=== PATIENT | female | born 1960 | race Caucasian/White ===

== ENCOUNTER 2017-12-03 14:21 | Emergency (ER) | payer BC ==
--- OUTSIDE RECORDS SUMMARY | 2017-12-03 15:15 | XMS REPORT ---
:1960 External Reference #:[id number] Author Organization [facility] Address [address] [place] [address] Phone [phone] Care Team Providers Name Role Phone Mumatz Chris MD Care Team Information Sawmill Manager Unavailable Mumtaz Chris MD Primary Care Physician Unavailable Payers Type Date Identification Numbers Payment Provider Subscriber Commercial Policy Number: [id number] BC/BS [employer] Name: BC/BS [address] [address] PayID: [id number] [place] [address] Problems Date Description Provider Status Onset: 02/03/2011 Mixed hyperlipidemia Elysia Singer M.D. Active Onset: 02/03/2011 Benign essential hypertension Elysia Singer M.D. Active Onset: 02/03/2011 Allergic rhinitis due to animals Liz Calderon M.D. Active Onset: 11/16/2016 Overweight Mumtaz Chris M.D. Active Onset: 11/11/2015 Essential hypertension Mumtaz Chris M.D. Active Family History Date Family Member(s) Problem(s) Comments General Adopted. Father 07/28[birth year]1930. Angina. Mother age 55 from rare bladder cancer. No other history. Social History Type Date Description Comments Marital Status Patient is Living Situation no children. 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 ETOH Use Social Alcohol 1 glass of wine nightly. Smoking Patient has never smoked Daily Caffeine Consumes on average 1 cup of coffee per day Exercise Type/Frequency Exercises regularly 2 miles Current nightly with dog. Allergies, Adverse Reactions, Alerts Date Description Reaction Status Severity Comments 08/21/2009 Environmental active 08/21/2009 Seasonal active 10/19/2010 Codeine active hallucinations, hydrocodone is ok Medications Medication Date Status Form Strength Qnty SIG Indications Ordering Provider Prednisone 11/25 Active Tablets 10mg 30tab take 5 by M54.12 Melba C. s mouth daily Cleve, for 2 days, RETAIL CUSTOMER SERVICE REPRESENTATIVE then 4 for 2 days, then 3 for 2 days, then 2 for 2 days, then 1 daily until gone Tizanidine HCL 11/25 Active Capsules 2mg 30cap take one or M54.12 Melba C. s two by Cleve, mouth three RETAIL CUSTOMER SERVICE REPRESENTATIVE times daily as needed for pain Tramadol HCL 11/25 Active Tablets 50mg 20tab take 1 by M54.12 Melba C. s mouth every Cleve, 6 hours as RETAIL CUSTOMER SERVICE REPRESENTATIVE needed for severe pain. Lotrisone 11/22 Active Cream 1-0.05% 30gm use on skin Mumtaz Kerns twice a day Evelyn Chris Proair HFA 04/15 Active Aerosol 108(90Bas 1unit inhale 2 J30.81 Mumtaz Kerns e) s puffs by oscar Chris/Act mouth every M.D. 4 hours if needed Losartan 03/04 Active Tablets 50mg 90tab take 1 I10 Melba Terry s tablet by Cleve, mouth once RETAIL CUSTOMER SERVICE REPRESENTATIVE daily Simvastatin 08/21 Active Tablets 20mg 30tab take 1 E78.2 Mumtaz Kerns s tablet by Dot mouth at M.D. bedtime Fish Oil Active Oil I10 Unknown /0000 Vitamin D Active Tablets 1000Unit 1 by mouth Unknown /0000 every day otc Vitamin B12 Active Tablets ER 1000mcg 1 by mouth Unknown /0000 every day Glucosamine Active Capsules 1500Com Daily Unknown 1500 Complex Maximum Strength Co Q-10 Active Capsules 150mg 1 by mouth Unknown /0000 every day Lotrisone 03/07 Hx Cream 1-0.05% 30gm use on skin Mumtaz Kerns twice a day Lissette Chris M.D. 11/10 Vitamin D3 10/19 Hx 2000Unit 90uni 1 po qd 268.9 Liz Orosco Lissette Calhoun M.D. 03/06 Zithromax 08/19 Hx Tablets 250mg 6tabs as directed Mumtaz Bean Lissette Chris M.D. 10/19 Nasonex 04/15 Hx Suspension 50mcg/Act 1unit Instill 2 477.2 Mumtaz Kerns /2010 s Sprays Into Lissette Chris M.D. 11/06 Nostr Once Daily Multivitamins 08/21 Hx Tablets 100ta 1 po qd 401.1 Elysia Prasad /2009 Lissette Mack M.D. 11/06 Diovan 03/26 Hx Tablets 80mg 1 po qd [facility] 08/21 Of Simvastatin 03/26 Hx Tablets 20mg 1 po qd [facility] 08/21 [facility] [place] Daria 03/26 Hx Tablets 0.35mg [facility] 08/21 [facility] [place] Diovan 03/26 Hx Tablets 40mg 30tab 1 po daily 401.1 Elysia Prasad /2009 s Lissette Singer M.D. 03/04 Simvastatin 03/26 Hx Tablets 5mg 30tab 1 po daily. 272.2 Elysia Prasad /2009 s (should be Lissette Singer M.D. 08/21 continuatio n of same dose.) Coenzyme Q10 00 Hx Capsules 100mg 1 po daily. 401.1 Unknown /0000 - 03/04 Claritin-D 24 00 Hx Tablets ER 10-240mg 5tabs 1 po qd Unknown Hour /0000 24HR - 11/06 Tramadol HCL 00 Hx Tablets 50mg 1 by mouth Unknown /0000 every 6 - hours as 11/25 Immunizations CPT Code Status Date Vaccine Lot # [id number] Given 03/20/2016 Influenza Vac, Quadriv[place], [place] [id number] Given 01/06/2015 Influenza Vac, Quadriv[place], [place] [id number] Given 03/06/2012 Tdap Tetanus, W Pertussis [id number] Vital Signs Date Vital Result Comment 11/25/2017 BP Systolic 162 mmHg BP Diastolic 82 mmHg Heart Rate 72 /min Body Temperature 98.1 F Height 63 inches 5'3" Weight 204.00 lb BMI (Body Mass Index) 36.1 kg/m2 11/22/2017 BP Systolic 148 mmHg BP Diastolic 82 mmHg Heart Rate 78 /min Body Temperature 98.2 F Height 63 inches 5'3" Weight 202.00 lb BMI (Body Mass Index) 35.8 kg/m2 11/16/2016 BP Systolic 138 mmHg BP Diastolic 80 mmHg Heart Rate 72 /min Body Temperature 98.1 F Respiratory Rate 18 /min Height 63 inches 5'3" Weight 198.00 lb BMI (Body Mass Index) 35.1 kg/m2 11/11/2015 BP Systolic 140 mmHg BP Diastolic 90 mmHg Heart Rate 66 /min Body Temperature 98.0 F Respiratory Rate 20 /min Height 63 inches 5'3" Weight 195.00 lb BMI (Body Mass Index) 34.5 kg/m2 11/06/2014 BP Systolic 140 mmHg BP Diastolic 84 mmHg Heart Rate 62 /min Body Temperature 97.6 F Respiratory Rate 18 /min Height 63 inches 5'3" Weight 195.00 lb BMI (Body Mass Index) 34.5 kg/m2 03/07/2013 BP Systolic 142 mmHg BP Diastolic 90 mmHg Heart Rate 68 /min Body Temperature 98.7 F Respiratory Rate 18 /min Height 64 inches 5'4" Weight 193.00 lb BMI (Body Mass Index) 33.1 kg/m2 03/06/2012 BP Systolic 124 mmHg BP Diastolic 88 mmHg Heart Rate 72 /min Body Temperature 97.7 F Height 64 inches 5'4" Weight 193.00 lb BMI (Body Mass Index) 33.1 kg/m2 10/19/2010 BP Systolic 122 mmHg BP Diastolic 82 mmHg Heart Rate 72 /min Body Temperature 98.0 F Height 64 inches 5'4" Weight 196.00 lb BMI (Body Mass Index) 33.6 kg/m2 08/19/2010 BP Systolic 128 mmHg BP Diastolic 70 mmHg Heart Rate 72 /min Body Temperature 98.4 F Height 64 inches 5'4" Weight 195.00 lb BMI (Body Mass Index) 33.5 kg/m2 04/15/2010 BP Systolic 134 mmHg BP Diastolic 86 mmHg Heart Rate 76 /min Height 64 inches 5'4" Weight 195.00 lb BMI (Body Mass Index) 33.5 kg/m2 03/04/2010 BP Systolic 138 mmHg BP Diastolic 88 mmHg Heart Rate 68 /min Height 64 inches 5'4" Weight 195.00 lb BMI (Body Mass Index) 33.5 kg/m2 08/21/2009 BP Systolic 158 mmHg BP Diastolic 92 mmHg Heart Rate 68 /min Body Temperature 99.2 F Respiratory Rate 12 /min Weight 193.00 lb 03/26/2009 BP Systolic 162 mmHg BP Diastolic 92 mmHg Heart Rate 68 /min Height 64 inches 5'4" Weight 194.00 lb BMI (Body Mass Index) 33.3 kg/m2 Results Test Date Test Result H/L Range Note Comprehensive Metabolic Prof 11/22/2017 Sodium 140 mEq/L 134-149 Potassium 4.4 mEq/L 3.6-5.5 Chloride 105 mEq/L 94-112 Carbon Dioxide 25 mEq/L 21-32 Glucose 124 mg/dL High 70-105 BUN 17 mg/dL 6-26 Creatinine 0.8 mg/dL 0.6-1.4 BUN/Creat Ratio 21.3 CALC 8.0-36.0 Calcium 9.2 mg/dL 8.6-10.2 Total Protein 6.9 g/dL 6.4-8.3 Albumin 4.8 g/dL 3.8-5.5 Globulin 2.1 g/dL 2.0-4.8 A/G Ratio 2.3 CALC 0.6-2.3 Alk. Phosphatase 70 U/L 30-110 Alt (SGPT) 29 U/L 7-35 Ast (Sgot) 16 U/L 5-34 Total Bilirubin 1.4 mg/dL High 0.2-1.3 GFR Non- >60 ml/min/1.73m^ >=60 GFR >60 ml/min/1.73m^ >=60 Lipid Profile 11/22/2017 Cholesterol 200 mg/dL 120-200 Triglycerides 156 mg/dL 30-200 HDL Cholesterol 56 mg/dL 30-85 LDL (Calculated) 113 CALC 0-129 VLDL Cholesterol 31 mg/dL 0-50 HDL Risk Factor 3.6 CALC 0.0-4.4 Comprehensive Metabolic Prof 11/16/2016 Sodium 143 mEq/L 134-149 Potassium 5.0 mEq/L 3.6-5.5 Chloride 105 mEq/L 94-112 Carbon Dioxide 24 mEq/L 21-32 Glucose 109 mg/dL High 70-105 BUN 15 mg/dL 6-26 Creatinine 0.7 mg/dL 0.6-1.4 BUN/Creat Ratio 21.4 CALC 8.0-36.0 Calcium 9.8 mg/dL 8.6-10.2 Total Protein 7.1 g/dL 6.4-8.3 Albumin 4.8 g/dL 3.8-5.5 Globulin 2.3 g/dL 2.0-4.8 A/G Ratio 2.1 CALC 0.6-2.3 Alk. Phosphatase 69 U/L 30-110 Alt (SGPT) 29 U/L 7-35 Ast (Sgot) 19 U/L 5-34 Total Bilirubin 1.0 mg/dL 0.2-1.3 GFR Non- >60 ml/min/1.73m^ >=60 GFR >60 ml/min/1.73m^ >=60 Lipid Profile 11/16/2016 Cholesterol 179 mg/dL 120-200 Triglycerides 201 mg/dL High 30-200 HDL Cholesterol 47 mg/dL 30-85 LDL (Calculated) 92 CALC 0-129 VLDL Cholesterol 40 mg/dL 0-50 HDL Risk Factor 3.8 CALC 0.0-4.4 Complete Blood Count 11/16/2016 WBC 8.0 x10^3/UL 3.6-9.6 RBC 5.26 x10^6/UL 3.90-5.70 HGB 15.3 g/dL 12.1-17.2 HCT 46 % 36-50 MCV 87.0 fL 82.2-97.4 MCH 29.1 pg 27.6-33.3 MCHC 33.7 g/dL 33.0-35.5 RDW 13.6 % 11.6-13.7 PLT 289 x10^3/UL 150-400 MPV 7.8 fL 7.4-10.4 Gran # 4.0 x10^3/UL 1.5-7.2 Lymph# 3.5 x10^3/UL 0.7-4.9 [place]# 0.5 x10^3/UL 0.1-0.9 Gran % 49.0 % 42.2-75.2 Lymph % 44.6 % 20.5-51.1 [place]% 6.4 % 1.7-9.3 Comprehensive Metabolic Prof 11/19/2015 Sodium 139 mEq/L 134-149 Potassium 4.5 mEq/L 3.6-5.5 Chloride 104 mEq/L 94-112 Carbon Dioxide 25 mEq/L 21-32 Glucose 111 mg/dL High 70-105 1 BUN 17 mg/dL 6-26 Creatinine 0.8 mg/dL 0.6-1.4 BUN/Creat Ratio 21.3 CALC 8.0-36.0 Calcium 9.9 mg/dL 8.6-10.2 Total Protein 6.7 g/dL 6.4-8.3 Albumin 4.5 g/dL 3.8-5.5 Globulin 2.2 g/dL 2.0-4.8 A/G Ratio 2.0 CALC 0.6-2.3 Alk. Phosphatase 62 U/L 30-110 Alt (SGPT) 31 U/L 7-35 Ast (Sgot) 19 U/L 5-34 Total Bilirubin 1.1 mg/dL 0.2-1.3 GFR Non- >60 ml/min/1.73m^ >=60 GFR >60 ml/min/1.73m^ >=60 Lipid Profile 11/19/2015 Cholesterol 180 mg/dL 120-200 Triglycerides 150 mg/dL 30-200 HDL Cholesterol 49 mg/dL 30-85 LDL (Calculated) 101 CALC 0-129 VLDL Cholesterol 30 mg/dL 0-50 HDL Risk Factor 3.7 CALC 0.0-4.4 Complete Blood Count 11/19/2015 WBC 6.7 x10^3/UL 3.6-9.6 RBC 4.80 x10^6/UL 3.90-5.70 HGB 14.3 g/dL 12.1-17.2 HCT 43 % 36-50 MCV 89.0 fL 82.2-97.4 MCH 29.9 pg 27.6-33.3 MCHC 33.7 g/dL 33.0-35.5 RDW 14.3 % High 11.6-13.7 PLT 225 x10^3/UL 150-400 MPV 8.2 fL 7.4-10.4 Gran # 3.6 x10^3/UL 1.5-7.2 Lymph# 2.8 x10^3/UL 0.7-4.9 [place]# 0.3 x10^3/UL 0.1-0.9 Gran % 52.1 % 42.2-75.2 Lymph % 42.8 % 20.5-51.1 [place]% 5.1 % 1.7-9.3 Comprehensive Metabolic Prof 11/06/2014 Sodium 138 mEq/L 134-149 Potassium 4.1 mEq/L 3.6-5.5 Chloride 102 mEq/L 94-112 Carbon Dioxide 26 mEq/L 21-32 Glucose 108 mg/dL High 70-105 2 BUN 20 mg/dL 6-26 Creatinine 0.8 mg/dL 0.6-1.4 BUN/Creat Ratio 25.0 CALC 8.0-36.0 Calcium 10.4 mg/dL High 8.6-10.2 3 Total Protein 7.4 g/dL 6.4-8.3 Albumin 4.7 g/dL 3.8-5.5 Globulin 2.7 g/dL 2.0-4.8 A/G Ratio 1.7 CALC 0.6-2.3 Alk. Phosphatase 55 U/L 30-110 Alt (SGPT) 26 U/L 7-35 Ast (Sgot) 18 U/L 5-34 Total Bilirubin 1.2 mg/dL 0.2-1.3 GFR Non- >60 ml/min/1.73m^ >=60 GFR >60 ml/min/1.73m^ >=60 Lipid Profile 11/06/2014 Cholesterol 231 mg/dL High 120-200 Triglycerides 276 mg/dL High 30-200 HDL Cholesterol 56 mg/dL 30-85 LDL (Calculated) 120 CALC 0-129 VLDL Cholesterol 55 mg/dL High 0-50 HDL Risk Factor 4.1 CALC 0.0-4.4 Complete Blood Count 11/06/2014 WBC 7.6 x10^3/UL 3.6-9.6 RBC 4.63 x10^6/UL 3.90-5.70 HGB 14.2 g/dL 12.1-17.2 HCT 41 % 36-50 MCV 89.0 fL 82.2-97.4 MCH 30.6 pg 27.6-33.3 MCHC 34.3 g/dL 33.0-35.5 RDW 14.2 % High 11.6-13.7 PLT 311 x10^3/UL 150-400 MPV 7.5 fL 7.4-10.4 Gran # 3.6 x10^3/UL 1.5-7.2 Lymph# 3.5 x10^3/UL 0.7-4.9 [place]# 0.5 x10^3/UL 0.1-0.9 Gran % 45.6 % 42.2-75.2 Lymph % 46.6 % 20.5-51.1 [place]% 7.8 % 1.7-9.3 Laboratory test finding 11/06/2014 LDL, Direct 131 mg/dL High 0-130 Comprehensive Metabolic Prof 03/08/2013 Albumin 5.5 g/dL 3.8-5.5 Alk. Phos. 72 U/L 30-110 Alt (SGPT) 47 U/L High 7-35 4 Ast (Sgot) 32 U/L 5-34 BUN 15 mg/dL 6-26 Calcium 10.1 mg/dL 8.6-10.2 Chloride 104 mEq/L 94-112 Creatinine 1.1 mg/dL 0.6-1.4 Carbon Dioxide 25 mEq/L 21-32 Glucose 118 mg/dL High 70-105 5 Sodium 143 mEq/L 134-149 Total Bilirubin 2.0 mg/dL High 0.2-1.3 Total Protein 8.1 g/dL 6.3-8.1 Potassium 4.6 mEq/L 3.6-5.5 Globulin 2.6 g/dL 2.0-4.8 A/G Ratio 2.1 Calc 0.6-2.3 BUN/Creat Ratio 14.3 Calc 8.0-36.0 Lipid Profile 03/08/2013 Cholesterol 225 mg/dL High 120-200 HDL 60 mg/dL 30-85 Triglycerides 205 mg/dL High 30-200 HDL Risk Factor 3.8 CALC 0.0-4.4 LDL (Calculated) 124 CALC 0-129 VLDL (Calculated) 41 mg/dL 0-50 CBC Electronic (a) 03/08/2013 WBC 6.7 3.6-9.6 RBC 5.25 3.90-5.70 Hemoglobin (Fma/CMC/CTX) 15.3 g/dL 12.1 - 17.2 Hematocrit (Fma/CMC/CTX) 46.7 % 36.1 - 50.3 Platelets 286 10^3/ul 150-400 Lymph% 40.8 20.5-51.1 Mixed% 4.0 Neutrophils % 55.2 Mean Corpuscular Vol 89 82.2-97.4 Mean Corpuscular Hemoglobin 29.2 27.6-33.3 Mean Corpuscular Hemo Concen 32.8 32.0-36.0 RDW 11.8 11.6-13.7 Mean Platelet Volume 7.2 6.5-11.0 Lipid Profile 03/06/2012 Cholesterol 219 mg/dL High 120-200 HDL 45 mg/dL 30-85 Triglycerides 163 mg/dL 30-200 HDL Risk Factor 4.9 CALC High 0.0-4.4 LDL (Calculated) 142 CALC High 0-129 VLDL (Calculated) 33 mg/dL 0-50 Comprehensive Metabolic Prof 03/06/2012 Albumin 5.4 g/dL 3.8-5.5 Alk. Phos. 61 U/L 30-110 Alt (SGPT) 46 U/L High 7-35 6 Ast (Sgot) 26 U/L 5-34 BUN 18 mg/dL 6-26 Calcium 10.2 mg/dL 8.6-10.2 Chloride 103 mEq/L 94-112 Creatinine 0.8 mg/dL 0.6-1.4 Carbon Dioxide 24 mEq/L 21-32 Glucose 106 mg/dL High 70-105 7 Sodium 138 mEq/L 134-149 Total Bilirubin 1.5 mg/dL High 0.2-1.3 8 Total Protein 7.9 g/dL 6.3-8.1 Potassium 4.4 mEq/L 3.6-5.5 Globulin 2.5 g/dL 2.0-4.8 A/G Ratio 2.2 Calc 0.6-2.2 BUN/Creat Ratio 21.9 Calc 8.0-36.0 Comprehensive Metabolic Prof 01/21/2011 Albumin 4.9 g/dL 3.8-5.5 Alk. Phos. 59 U/L 30-110 Alt (SGPT) 29 U/L 7-35 Ast (Sgot) 18 U/L 5-34 BUN 17 mg/dL 6-26 Calcium 9.7 mg/dL 8.6-10.2 Chloride 106 mEq/L 94-112 Creatinine 0.8 mg/dL 0.6-1.4 Carbon Dioxide 23 mEq/L 21-32 Glucose 115 mg/dL High 70-105 9 Sodium 136 mEq/L 134-149 Total Bilirubin 1.0 mg/dL 0.2-1.3 Total Protein 7.2 g/dL 6.3-8.1 Potassium 4.9 mEq/L 3.6-5.5 Globulin 2.3 g/dL 2.0-4.8 A/G Ratio 2.2 Calc 0.6-2.2 BUN/Creat Ratio 21.1 Calc 8.0-36.0 Lipid Profile 01/21/2011 Cholesterol 177 mg/dL 120-200 HDL 42 mg/dL 30-85 Triglycerides 113 mg/dL 30-200 HDL Risk Factor 4.2 CALC High 0.0-4.0 LDL (Calculated) 112 CALC 0-129 VLDL (Calculated) 23 mg/dL 0-50 Laboratory test finding 01/21/2011 Hemoglobin A1c 5.4 % 4.1-5.7 (Fma/CMC,CX) Surgical Pathology 11/30/2010 Surgical Pathology 10 -- <SEE NOTE> Comprehensive Metabolic 10/19/2010 Albumin 4.7 g/dL 3.8-5.5 Prof Alk. Phos. 61 U/L 30-110 Alt (SGPT) 30 U/L 7-35 Ast (Sgot) 17 U/L 5-34 BUN 18 mg/dL 6-26 Calcium 9.7 mg/dL 8.6-10.2 Chloride 98 mEq/L 94-112 Creatinine 0.8 mg/dL 0.6-1.4 Carbon Dioxide 25 mEq/L 21-32 Glucose 122 mg/dL High 70-105 11 Sodium 140 mEq/L 134-149 Total Bilirubin 1.2 mg/dL 0.2-1.3 Total Protein 6.8 g/dL 6.3-8.1 Potassium 4.5 mEq/L 3.6-5.5 Globulin 2.1 g/dL 2.0-4.8 A/G Ratio 2.2 Calc 0.6-2.2 BUN/Creat Ratio 21.2 Calc 8.0-36.0 Lipid Profile 10/19/2010 Cholesterol 192 mg/dL 120-200 HDL 45 mg/dL 30-85 Triglycerides 208 mg/dL High 30-200 HDL Risk Factor 4.3 CALC High 0.0-4.0 LDL (Calculated) 105 CALC 0-129 VLDL (Calculated) 42 mg/dL 0-50 Laboratory test finding 10/19/2010 Vitamin D, 25 Oh 33.7 ng/mL 32.0- 100.0 12 Laboratory test finding 02/28/2010 Hemoglobin A1c 5.5 % 4.1-5.7 (Fma/CMC,CX) Laboratory test finding 02/28/2010 TSH 3.80 mIU/L 0.50-6.00 Lipid Profile 02/28/2010 Cholesterol 161 mg/dL 120-200 HDL 41 mg/dL 30-85 Triglycerides 135 mg/dL 30-200 HDL Risk Factor 4.0 CALC Low 4.2-7.0 LDL (Calculated) 93 CALC 0-129 VLDL (Calculated) 27 mg/dL 0-50 Comprehensive Metabolic Prof 02/28/2010 Albumin 4.5 g/dL 3.8-5.5 Alk. Phos. 44 U/L 30-110 Alt (SGPT) 26 U/L 7-35 Ast (Sgot) 19 U/L 5-34 BUN 15 mg/dL 6-26 Calcium 9.2 mg/dL 8.6-10.2 Chloride 104 mEq/L 94-112 Creatinine 0.9 mg/dL 0.6-1.4 Carbon Dioxide 22 mEq/L 21-32 Glucose 104 mg/dL 70-105 Sodium 137 mEq/L 134-149 Total Bilirubin 0.9 mg/dL 0.2-1.3 Total Protein 6.6 g/dL 6.3-8.1 Potassium 4.5 mEq/L 3.6-5.5 Globulin 2.1 g/dL 2.0-4.8 A/G Ratio 2.1 Calc 0.6-2.2 BUN/Creat Ratio 16.5 Calc 8.0-36.0 Comprehensive Metabolic Prof 08/08/2009 Albumin 4.5 g/dL 3.8-5.5 Alk. Phos. 68 U/L 30-110 Alt (SGPT) 21 U/L 7-35 Ast (Sgot) 17 U/L 5-34 BUN 17 mg/dL 6-26 Calcium 9.7 mg/dL 8.6-10.2 Chloride 97 mEq/L 94-112 Creatinine 0.9 mg/dL 0.6-1.4 Carbon Dioxide 24 mEq/L 21-32 Glucose 111 mg/dL High 70-105 13 Sodium 145 mEq/L 134-149 Total Bilirubin 1.3 mg/dL 0.2-1.3 Total Protein 6.7 g/dL 6.3-8.1 Potassium 4.6 mEq/L 3.6-5.5 Globulin 2.1 g/dL 2.0-4.8 A/G Ratio 2.1 Calc 0.6-2.2 BUN/Creat Ratio 20.2 Calc 8.0-36.0 Laboratory test finding 08/08/2009 TSH 3.67 mIU/L 0.50-6.00 Creatine Kinase 60 U/L 26-140 Lipid Profile 08/08/2009 Cholesterol 192 mg/dL 120-200 HDL 50 mg/dL 30-85 Triglycerides 144 mg/dL 30-200 HDL Risk Factor 3.8 CALC Low 4.2-7.0 LDL (Calculated) 113 CALC 0-129 VLDL (Calculated) 29 mg/dL 0-50 CBC With Electronic Diff 07/08/2009 White Blood Count 7.4 CUMM 4.8-10.8 14 Red Cell Count 4.87 CUMM 4.2-5.4 14 Hemoglobin 13.9 g/dL 12.0-16.0 14 Hematocrit 41 % 35-47 14 Mean Corpuscular Volume 84 um3 79-97 14 Mean Corpuscular Hemoglob 28 pg 27-31 14 Mean Corpuscular HGB Cone 34 g/dL 32-36 14 Redcell Distribution WDTH 14 % 10.5-15 14 Platelet Count 217 CUMM 150-450 14 Mean Platelet Volume 9.0 um3 7.4-10.4 14 Gran % 56.5 % 38-83 14 Lymph % 32.5 % 20-45 14 Mononuclear % 6.4 % 1-9 14 Eosinophil % 3.8 % 0-6 14 Basophil % 0.8 % 0-2 14 Abs Lymphs 2.4 1.0-4.8 14 Abs Mononuclear 0.5 0-0.8 14 Absolute Neutrophil Count 4.1 1.5-7.7 14 Abs Eosinophils 0.3 0-0.6 14 Abs Basophils 0.1 0-0.2 14 Type And Screen 07/08/2009 Patient Blood Type O POSITIVE 14 Antibody Screen NEGATIVE 14 Specimen Discard Date 07/22/09 14, 15 1 consistent w/ previous results 2 RESULTS VERIFIED BY REPEAT ANALYSIS 3 RESULTS VERIFIED BY REPEAT ANALYSIS 4 result sandra'd 5 resutl sandra'd 6 result sandra'd 7 result sandra'd 8 result sandra'd 9 RESULT SANDRA'D 10 ---- RUN DATE: 12/02/10 [facility] NMI LIVE PAGE 1 RUN TIME: 1323 Specimen Inquiry RUN USER: INTERFACE -- Name: BEBE PHILLIPS [facility]#: [id number] Status: REG REF Re11/30/10 Age/Sex: 50/F Unit#: [id number] Location: [address] [place] [address].O.B. : 58 -- Specimen: [id number] [facility] Spec Date: 11/30/[address]: Femi garcia MD Spec Type: SURGICAL P Received: 12/01/10 Copies to: Liz Riggs SPECIMEN BIOPSY SIGMOID NODULE HISTORY POST-OP DIAGNOSIS: Colonoscopy to cecum. Diverticulosis. Nodule. CLINICAL INFORMATION: First exam. Screening. GROSS DESCRIPTION The specimen is received in formalin labelled Bebe Phillips, Biopsy Sigmoid Nodule, and consists of two fragments of yellow tissue measuring in aggregate 0.4 x 0.4 x 0.2 cm. Submitted entirely, one cassette. DIAGNOSIS Sigmoid nodule, biopsy: A. Tubular adenoma. B. No high grade dysplasia or malignancy. Signed Electronically by: YIFAN DIAMOND 12/02/10 1323 -- -- DEPARTMENT OF PATHOLOGY, [address] [place] [address] [facility] Permit #[id number] Chandan Haines M.D. Director Yifan Diamond M.D. Ball Assembler diane -- 11 RESULT SANDRA'D 12 Recent studies consider the lower limit of 32.0 ng/mL to be a threshold for optimal health. Kulwinder BW. J Nutr. 2005 Apr;135(2):317-22. 13 RESULT SANDRA'Oenil 14 07/18/09 15 PREADMISSION TESTING SAMPLES FOR BLOOD BANK WILL BE HELD FOR 14 DAYS FROM THE DATE OF COLLECTION *IF* THE FOLLOWING CRITERIA ARE MET: 1) THE PATIENT HAS *NOT* BEEN IN THE LAST 3 MONTHS. 2) THE PATIENT HAS *NOT* BEEN TRANSFUSED IN THE LAST 3 MONTHS. PREADMISSION TESTING SAMPLES WILL *NOT* BE HELD FOR 14 DAYS FROM PATIENTS WHO IN THE LAST 3 MONTHS: 1) HAVE BEEN 2) HAVE BEEN TRANSFUSED THESE PATIENTS *MUST* BE COLLECTED WITHIN 3 DAYS OF THE SURGERY DATE. Procedures Date CPT Code Description Status Comment 06/20/2015 Mammogram Completed 12/11/2012 Mammogram Completed 11/30/2010 Colonoscopy Completed 09/18/2010 Mammogram Completed 201604/25/2009 Mammogram Completed Encounters Type Date Location Provider CPT E/M Dx Office Visit 11/25/2017 3:15p [facility] Melba Harrison Poon, SOFI 31463 M54.12 Z12.31 Z12.11 Office Visit 11/22/2017 9:40a [facility] Office Mumtaz Chris M.D. 03999 I10 E78.2 Office Visit 11/16/2016 10:10a [facility] Mumtaz Chris M.D. 64098 I10 E78.2 E66.3 Office Visit 11/11/2015 3:10p [facility] Office Mumtaz Chris M.D. 20794 I10 E78.2 Office Visit 11/06/2014 8:10a [facility] Mumtaz Chris M.D. 25722 401.1 272.2 272.1 Office Visit 03/07/2013 6:00p [facility] Mumtaz Chris M.D. 47265 272.2 401.1 Office Visit 03/06/2012 9:20a [facility] Mumtaz Chris M.D. 74592 272.2 401.1 V06.1 v06.5 Office Visit 10/19/2010 8:00a [facility] Office Liz Calderon M.D. 62582 401.1 272.2 477.2 V65.49 268.9 Office Visit 08/19/2010 7:40p [facility] Mumtaz Chris M.D. 75950 466.0 Office Visit 04/15/2010 6:40p [facility] Liz Calderon M.D. 46897 477.2 401.1 Office Visit 03/04/2010 6:00p [facility] Lzi Calderon M.D. 11131 401.1 272.2 277.7 Office Visit 08/21/2009 11:00a [facility] Elysia Singer M.D. 15929 401.1 272.2 277.7 Office Visit 03/26/2009 12:00p [facility] Elysia Singer M.D. 49587 401.1 272.2 Plan of Care 11/25/2017 - Melba Poon, NPM54.12 Radiculopathy, cervical regionNew Medication:Prednisone 10 mgTizanidine HCL 2 mgTramadol HCL 50 mgComments:Take these medications and observe for the next several days.If you develop weakness or rapidly worsening symptoms go to the ED.Come back in one week if you do not see some improvement.Z12.31 Encntr screen mammogram for malignant neoplasm of pojixlP60.11 Encounter for screening for malignant neoplasm of colon
--- NOTE | 2017-12-03 15:51 | RAD ---
INDICATION: Neck pain. COMPARISON: There are no prior studies available for comparison. TECHNIQUE: Contiguous axial sections were obtained from the skull base through the T2 vertebra. Images were reconstructed in the sagittal and coronal planes. FINDINGS: VERTEBRA: There is straightening of the cervical spine with loss of the normal cervical lordosis. No prevertebral soft tissue swelling or fracture is seen. C2-C3: No significant disc bulge or herniation is noted. No spinal canal or neural foraminal narrowing is seen. C3-C4: There is mild posterior uncinate process spurring. No significant spinal canal or neural foraminal narrowing is seen. C4-C5: There is mild posterior uncinate process spurring and hypertrophic change which is most prominent within the right facet joint. No significant spinal canal narrowing is present. There is moderate neural foraminal narrowing on the right side. C5-C6: There is mild to moderate posterior uncinate process spurring and hypertrophic changes within the facet joints. There appears be mild spinal canal narrowing. There is moderate neural foraminal narrowing on the right side and mild neural foraminal narrowing on the left side. C6-C7: No significant disc bulge or herniation is noted. No spinal canal or neural foraminal narrowing is seen. LUNG APICES: The lung apices appear clear. IMPRESSION: 1. STRAIGHTENING OF THE CERVICAL SPINE, POSSIBLY RELATED TO MUSCLE SPASM. 2. MILD TO MODERATE CERVICAL SPONDYLOSIS. IF THE PATIENT'S SYMPTOMS PERSIST RECOMMEND FOLLOW-UP MR IMAGING.
[2017-12-03] MEDS ORDERED: LORazepam INJ* 2 MG/ML 1 ML VIAL IM ONE (16:38)
[2017-12-03] MEDS ORDERED: Morphine INJ** 4 MG/ML 1 ML CARPUJECT IV ONE (16:38)
[2017-12-03] MEDS ORDERED: Morphine INJ* 2 MG/ML 1 ML SYRINGE (TWO MG - NEW SYRINGE VERSION) ONE (16:50)
[2017-12-03] MEDS ORDERED: Morphine INJ* 2 MG/ML 1 ML SYRINGE (TWO MG - NEW SYRINGE VERSION) IV ONE (16:57)
[2017-12-03 17:19] VITALS: BP 182/96
--- NOTE | 2017-12-03 17:36 | ED ---
Neck Pain - HPI Summary HPI Summary: Patient is a 57 y/o F w/ c/o neck pain and muscular spasms onsetting two weeks ago and has gradually worsened. She has been seen by PCP and placed on steroids , muscle relaxers and pain killers. Patient denies relief in Sx from these treatments. She denies recent trauma, fevers, numbness, weakness. 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 On triage, pain is rated 10/10 and it is noted that movement aggravates pain, with nothing alleviating. Home medications and allergies reviewed. - History of Current Complaint Chief Complaint: EDNeckComplaint Stated Complaint: NECK PAIN Time Seen by Provider: 12/03/17 16:21 Hx Obtained From: Patient Onset/Duration Of Injury/Symptoms: Weeks - 2 weeks ago Mechanism Of Injury: No Known Trauma Timing: Constant, Lasting Weeks - 2 weeks Onset/Duration: Started weeks ago - 2 weeks, Still Present Severity Currently: Severe - 10/10 Pain Intensity: 10 Pain Scale Used: 0-10 Numeric - 10/10 Location: Discrete At: - neck Aggravating Factors: Movement Alleviating Factors: Nothing Associated Signs & Symptoms: Negative: Fever, Weakness - Allergies/Home Medications Allergies/Adverse Reactions: Allergies Allergy/AdvReac Type Severity Reaction Status Date / Time codeine Allergy Severe See Comment Verified 12/03/17 14:33 acetic acid [From VoSol] Allergy Unknown Unknown Verified 12/03/17 14:33 Reaction Details Home Medications: Home Medications NK [No Home Medications Reported] 12/03/17 [History Confirmed 12/03/17] PMH/Surg Hx/FS Hx/Imm Hx Endocrine/Hematology History: Denies: Hx Diabetes Cardiovascular History: Reports: Hx Hypertension - TAKES MEDICATION Denies: Hx Pacemaker/ICD Sensory History: Denies: Hx Hearing Aid Psychiatric History: Denies: Hx Panic Disorder - Surgical History Surgery Procedure, Year, and Place: Partial Hysterectomy 2010 Infectious Disease History: No Infectious Disease History: Reports: Traveled Outside the [place] in Last 30 Days - [place] - Family History Known Family History: Negative: Blood Disorder - Social History Alcohol Use: Rare Substance Use Type: Reports: None Smoking Status (MU): Never Smoked Tobacco Review of Systems Negative: Fever Positive: Other - POSITIVE: neck pain NEGATIVE: recent trauma Negative: Weakness, Numbness All Other Systems Reviewed And Are Negative: Yes Physical Exam - Summary Physical Exam Summary: Appearance: Well appearing, no pain distress Skin: warm, dry, reflects adequate perfusion Head/face: normal Eyes: EOMI, AMINTA ENT: normal Neck: supple, non-tender Respiratory: CTA, breath sounds present Cardiovascular: RRR, pulses symmetrical Abdomen: non-tender, soft Bowel Sounds: present Musculoskeletal: strength/ROM intact, diffuse tenderness in the muscular area of the neck Neuro: normal, sensory motor intact, A&Ox3 Triage Information Reviewed: Yes Vital Signs On Initial Exam: Initial Vitals Temp Pulse Resp BP Pulse Ox 98.0 F 58 16 141/74 99 12/03/17 14:26 12/03/17 14:26 12/03/17 14:26 12/03/17 14:26 12/03/17 14:26 Vital Signs Reviewed: Yes Procedures - Procedure Summary Procedure Summary: Trigger point injection: The tender musculature in the cervical spine bilaterally was cleaned with alcohol and injected with divided aliquots of a total of 15 cc of 0.5% bupivacaine with epinephrine and 5 cc of 1% lidocaine. This was massaged through the tissues. Pain relief was modest. She tolerated this well without complication. Diagnostics - Vital Signs Vital Signs Temp Pulse Resp BP Pulse Ox 12/03/17 17:18 98.1 F 62 16 182/96 99 12/03/17 17:01 16 12/03/17 17:00 16 12/03/17 14:26 98.0 F 58 16 141/74 99 - Laboratory Lab Statement: Any lab studies that have been ordered have been reviewed, and results considered in the medical decision making process. - CT cervical spine CT CT Interpretation: Positive (See Comments) CT Interpretation Completed By: Radiologist - IMPRESSION: 1. STRAIGHTENING OF THE CERVICAL SPINE, POSSIBLY RELATED TO MUSCLE SPASM. 2. MILD TO MODERATE CERVICAL SPONDYLOSIS. IF THE PATIENT'S SYMPTOMS PERSIST RECOMMEND FOLLOW-UP MR IMAGING. THIS REPORT WAS REVIEWED BY ED PHYSICIAN. Re-Evaluation - Re-Evaluation First Eval Re-Evaluation Time: 16:32 Comment: Patient was given IM injections Second Eval Re-Evaluation Time: 17:19 Change: Improved Comment: Patient reports relief from pain; she will be discharged to home and was given instructions; she is agreeable with this plan. Neck Course/Dx - Course Course Of Treatment: CT scan indicating muscular cause of cervical straightening. No bony injury. Trigger point injections performed with some improvement. Also given morphine, Ativan for muscle relaxation and pain control. Patient will follow-up with chiropractic as well as her family physician. - Diagnoses Differential Dx/HQI/PQRI: Positive: Other - Sprain, strain, locked facet, degenerative arthritis Provider Diagnoses: Cervical strain Discharge - Sign-Out/Discharge Documenting (check all that apply): Patient Departure - discharge - Discharge Plan Condition: Improved Disposition: HOME Patient Education Materials: Cervical Strain (ED) Referrals: Bao Manuel MD [Medical Doctor] - Mumtaz Chris MD [Primary Care Provider] - Additional Instructions: Recommended is critical care paramedic, medical massage. Ice, range of motion exercises and continuation of her current muscle relaxers and pain medication. Return with numbness, weakness, new symptoms or other concerns as discussed. - Billing Disposition and Condition Condition: IMPROVED Disposition: Home - Attestation Statements Document Initiated by Scribe: Yes Documenting Scribe: Durga Arroyo Provider For Whom Scribe is Documenting (Include Credential): Naun Trejo MD Scribe Attestation: Durga Liz, scribed for Naun Trejo MD on 12/03/17 at 1852. Scribe Documentation Reviewed: Yes Provider Attestation: The documentation as recorded by the Durga fitzgerald accurately reflects the service I personally performed and the decisions made by , Naun Trejo MD
== END 2017-12-03 17:18 | disposition home or self-care (01) ==
LOC: ED 14:21
CPT/HCPCS: 72125; J2060; J2270

== ENCOUNTER → 2017-12-08 05:26 | Emergency (ER) | payer BC ==
[~2017-12-08 05:26] MED LIST: Gadoteridol* (CONTRAST) 279.3 MG/ML 10 ML IV ONE; HYDROmorphone INJ* 2 MG/ML CARPUJECT SYRINGE IV SLOW PU ONE; HYDROmorphone INJ1* 1 MG/ML SYRINGE ONE; Ketorolac INJ* 30 MG/ML 1 ML VIAL IV PUSH ONE; LORazepam INJ* 2 MG/ML 1 ML VIAL IV PUSH ONE; Labetalol IV* 5 MG/ML 20 ML VIAL ONE; NS 0.9% 1000 ML* 1,000 ML IV ONE; Ondansetron INJ* 2 MG/ML VIAL IV ONE; Piperacillin/Tazobac ADVAN(*) 3.375 GM in NS 0.9% 100 ML* 100 ML IVPB ONE; Vancomycin(*) 1,500 MG in NS 0.9% 250 ML* 250 ML IVPB ONE
--- NOTE | 2017-12-08 05:44 | ED ---
GI/ HPI - HPI Summary HPI Summary: Pt. is a 57 y.o female who presents to the ER for severe right sided neck pain and arm weakness. Pt. states she started with neck pain roughly two weeks ago that has progressively gotten worse. Pt. denies any initial falls or injuries. Pt. was seen at [facility] about 5 days ago for left sided neck pain. She had a CT scan at that time which was fairly unremarkable. She also had left sided trapezius muscle trigger point injection. Pt. states she has had a mild URI over the last few days with sore throat and chills. Pt. states she is now unable to lift her arms. She denies decreased sensation in arms or legs. Pt. also notes decreased PO intake, hematuria, constipation. Symptoms are severe in severity. Movement makes symptoms worse. Nothing makes symptoms better. Denies significant past medical history. - History of Current Complaint Chief Complaint: EDGeneral Time Seen by Provider: 12/08/17 05:36 Stated Complaint: BLOOD IN URINE Hx Obtained From: Patient Pain Intensity: 10 - Allergy/Home Medications Allergies/Adverse Reactions: Allergies Allergy/AdvReac Type Severity Reaction Status Date / Time codeine Allergy Severe See Comment Verified 12/08/17 05:35 acetic acid [From VoSol] Allergy Unknown Unknown Verified 12/08/17 05:35 Reaction Details Home Medications: Home Medications Losartan TAB* [Cozaar TAB*] 50 mg PO DAILY 12/08/17 [History Confirmed 12/08/17] Simvastatin 20 mg PO DAILY 12/08/17 [History Confirmed 12/08/17] PMH/Surg Hx/FS Hx/Imm Hx Previously Healthy: Yes Endocrine/Hematology History: Denies: Hx Diabetes Cardiovascular History: Reports: Hx Hypertension - TAKES MEDICATION Denies: Hx Pacemaker/ICD Sensory History: Denies: Hx Hearing Aid Psychiatric History: Denies: Hx Panic Disorder - Surgical History Surgery Procedure, Year, and Place: Partial Hysterectomy 2010 Infectious Disease History: No Infectious Disease History: Denies: Traveled Outside the [place] in Last 30 Days - Family History Known Family History: Negative: Blood Disorder - Social History Occupation: Employed Full-time Lives: With Family Alcohol Use: Rare Substance Use Type: Reports: None Smoking Status (MU): Never Smoked Tobacco Review of Systems Positive: Chills Eyes: Negative ENT: Negative Cardiovascular: Negative Negative: Palpitations, Chest Pain Respiratory: Negative Negative: Shortness Of Breath, Cough Gastrointestinal: Negative Negative: Abdominal Pain, Vomiting, Diarrhea, Nausea Positive: hematuria. Negative: flank pain Positive: Other - Left sided neck pain Skin: Negative Positive: Headache, Weakness. Negative: Paresthesia, Numbness All Other Systems Reviewed And Are Negative: Yes Physical Exam Triage Information Reviewed: Yes Vital Signs On Initial Exam: Initial Vitals Temp Pulse Resp BP Pulse Ox 99.8 F 92 18 202/78 97 12/08/17 05:32 12/08/17 05:32 12/08/17 05:32 12/08/17 05:32 12/08/17 05:32 Vital Signs Reviewed: Yes Appearance: Positive: Pain Distress - Pt. sitting up in bed, appears in pain but nontoxic. present. Skin: Positive: Warm, Dry Head/Face: Positive: Normal Head/Face Inspection Eyes: Positive: Normal, EOMI Respiratory/Lung Sounds: Positive: Clear to Auscultation, Breath Sounds Present Cardiovascular: Positive: Normal, RRR Musculoskeletal: Positive: Other - Muscle strength in the right upper extremity. 1/5 strength on the right UE. Diffusely diminished DTR to UEs. Sensation intake to bilateral UEs and LEs. 5/5 strength in bilateral lower extremities with flexion and dorsiflexion. 2/4 patellar deep tendon reflexes. Neurological: Positive: Normal, Alert, Oriented to Person Place, Time, CN Intact II-III, Unable to Assess Gait, Facial Symmetry, Speech Normal. Negative : Disoriented, Slurred Speech Psychiatric: Positive: Affect/Mood Appropriate - Kay Coma Scale Best Eye Response: 4 - Spontaneous Best Motor Response: 6 - Obeys Commands Best Verbal Response: 5 - Oriented Coma Scale Total: 15 Diagnostics - Vital Signs Vital Signs Temp Pulse Resp BP Pulse Ox 12/08/17 05:32 99.8 F 92 18 202/78 97 - Laboratory Result Diagrams: 12/08/17 05:55 12/08/17 05:55 Lab Statement: Any lab studies that have been ordered have been reviewed, and results considered in the medical decision making process. GIGU Course/Dx - Course Course Of Treatment: Pt. presenting with severe lateral neck pain and arm weakness. Pt. examined immediately by Dr. Trejo as well. Hypertensive at 202/ 78, HR 92bpm, resp 18, pulse ox 97%, temp. 99.8F. IV placed and pt. placed on monitor. WBC elevated at 23k. Dr. Trejo concerned for possible epidural abscess. MRI with contrast ordered of cervical spine. Neurosurgery consulted at 0623, Dr. Branham. He would like a stat ct of head and brain while we wait for cervical MRI and labs. Pain medication and fluids ordered. Pt. examined by Dr. Drummond, neurosurgery, at 0700. MRI cervical spine per radiology: IMPRESSION: 1. THERE IS DIFFUSE EPIDURAL ENHANCEMENT ANTERIOR AND POSTERIOR DISTAL TO THE CERVICAL. CORD EXTENDING TO THE UPPER THORACIC SPINE, SUGGESTIVE OF EPIDURAL PHLEGMON GIVEN THE. CLINICAL HISTORY. 2. THERE IS NO APPRECIABLE MRI FINDINGS OF OSTEOMYELITIS, DISCITIS, OR SEPTIC ARTHRITIS. THERE IS EXTENSIVE PREVERTEBRAL SOFT TISSUE AND ENHANCEMENT WITH EXTENSIVE ENHANCEMENT OF. THE SOFT TISSUES OF THE NECK INCLUDING THE FASCIA OF THE DEEP SPACES OF THE NECK,. SUGGESTIVE OF EXTENSIVE CELLULITIS WITHOUT LOCULATED FLUID COLLECTION TO SUGGEST ABSCESS. THIS SUGGESTS THAT THE SOFT TISSUES OF THE NECK OTHER SOURCE OF INFECTION WITH EXTENSION. INTO THE EPIDURAL SPACE. 3. THE ENHANCING EPIDURAL SOFT TISSUE DIFFUSELY EFFACES THE CSF AROUND THE CERVICAL CORD. AND THE UPPER THORACIC CORD. 4. THERE IS DEGENERATIVE DISC DISEASE AND OSTEOARTHRITIS WITH A LEFT PARACENTRAL DISC. [id number] AT C5-C6. Vanc and zosyn given. MRI results discussed immediately with Dr. Drummond who is currently in the OR. He would like neurology consult. I spoke with neurologist, Dr. Fernandes, who examined pt. in the ER. Dr. Drummond and Dr. Fernandes have decided it is in pt.'s best interest to be transferred to a higher level of care facility for further care and sx. Dr. Fernandes made arrangements with [facility] for transfer. Please see consult notes for additional care and decision making. 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 care, consults Discharge - Sign-Out/Discharge Documenting (check all that apply): Patient Departure - Discharge Plan Condition: Critical Disposition: TRANS HIGHER LVL OF CARE FAC Referrals: Mumtaz Chris MD [Primary Care Provider] - - Billing Disposition and Condition Condition: CRITICAL Disposition: Trans Higher Lvl of Care Fac
[2017-12-08 06:06] LABS: Hematocrit 34 % (35-47); Hemoglobin 11.5 g/dl (12.0-16.0); Mean Corpuscular HGB Conc 34 g/dl (31-36); Mean Corpuscular Hemoglobin 28 pg (27-31); Mean Corpuscular Volume 85 fL (80-97); Mean Platelet Volume 7.9 um3 (7.4-10.4); Platelet Count 206 10^3/ul (150-450); Red Blood Count 4.05 10^6/ul (4.00-5.40); Red Cell Distribution Width 14 % (10.5-15); White Blood Count 23.1 10^3/ul (3.5-10.8)
--- OUTSIDE RECORDS SUMMARY | 2017-12-08 06:07 | XMS REPORT ---
:1960 External Reference #:[id number] Author Organization [facility] Address [address] [place] [address] Phone [phone] Care Team Providers Name Role Phone Mumtaz Chris MD Care Team Information Steam Hand Unavailable Mumtaz Chris MD Primary Care Physician Unavailable Payers Type Date Identification Numbers Payment Provider Subscriber Commercial Policy Number: [id number] BC/BS Of [employer] Name: BC/BS [address] [address] PayID: [id number] [place] [address] Problems Date Description Provider Status Onset: 02/03/2011 Mixed hyperlipidemia Elysia Singer M.D. Active Onset: 02/03/2011 Benign essential hypertension Elysia Singer M.D. Active Onset: 02/03/2011 Allergic rhinitis due to animals Liz Cadleron M.D. Active Onset: 11/16/2016 Overweight Mumtaz Chris M.D. Active Onset: 11/11/2015 Essential hypertension Mumtaz Chris M.D. Active Family History Date Family Member(s) Problem(s) Comments General Adopted. Father 07/28/1930. Angina. Mother age 55 from rare bladder cancer. No other history. Social History Type Date Description Comments Marital Status Patient is Living Situation no children. 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 Cigarette [...] Form Strength Qnty SIG Indications Ordering Provider Cyclobenzaprine 12/06 Hx Tablets 10mg 20tab 1 by M54.2 Megha HCL s mouth [place], - three Afnp-C 12/13 times day as needed Hydrocodone-Acet 12/06 Active Tablets 5-325mg 40tab 1 -2 po q M54.2 Megha aminophen s 4-6 hrs [place], prn neck Afnp-C pain Prednisone 11/25 Active Tablets 10mg 30tab take 5 by M54.12 Melba CJoyce s mouth Cleve, daily for EXCELLENCE SPECIALIST 2 days, then 4 for 2 days, then 3 for 2 days, then 2 for 2 days, then 1 daily until gone Tizanidine HCL 11/25 Active Capsules 2mg 30cap take one M54.12 Melba Terry s or two by rudy Poon EXCELLENCE SPECIALIST three times daily as needed for pain Tramadol HCL 11/25 Active Tablets 50mg 25tab take 1 by M54.12 Melba CJoyce s mouth [place], every 6 EXCELLENCE SPECIALIST hours as needed for severe pain. Lotrisone 11/22 Active Cream 1-0.05% 30gm use on skin Dot, twice a M.D. day Proair HFA 04/15 Active Aerosol 108(90Bas 1unit inhale 2 J30.81 Mumtaz Kerns e) s puffs by Dot mcg/Act mouth M.D. every 4 hours if needed Losartan 03/04 Active Tablets 50mg 90tab take 1 I10 Melbamoe Terry s tablet by Cleve mouth EXCELLENCE SPECIALIST once daily Simvastatin 08/21 Active Tablets 20mg 30tab take 1 E78.2 Mumtaz Kerns s tablet by Dot mouth at M.D. bedtime Fish Oil 00/00 Active Oil I10 Unknown /0000 Vitamin D 00 Active Tablets 1000Unit 1 by Unknown /0000 mouth every day otc Vitamin B12 Active Tablets ER 1000mcg 1 by Unknown /0000 mouth every day Glucosamine 00/00 Active Capsules 1500Com Daily Unknown Chondroitin 1500 /0000 Complex Maximum Strength Co Q-10 Active Capsules 150mg 1 by Unknown /0000 mouth every day Lotrisone 03/07 Hx Cream 1-0.05% 30gm use on skin Lissette Chris twice a M.D. Vitamin D3 10/19 Hx 2000Unit 90uni 1 po qd 268.9 Liz Orosco Lissette Calhoun M.D. 03/06 Zithromax Z-Maximino 08/19 Hx Tablets 250mg 6tabs as . directed Lissette Chris M.D. 10/19 Nasonex 04/15 Hx Suspension 50mcg/Act 1unit Instill 2 477.2 Mumtaz Kerns s Sprays Lissette Chris Into Each M.D. 11/06 Nos Once Daily Multivitamins 08/21 Hx Tablets 100ta 1 po qd 401.1 Elysia Prasad /2009 Lissette Mack.Ella 11/06 Diovan 03/26 Hx Tablets 80mg 1 po qd [facility] [address] Simvastatin 03/26 Hx Tablets 20mg 1 po qd [facility] [address] Daria 03/26 Hx Tablets 0.35mg [facility] [address] Diovan 03/26 Hx Tablets 40mg 30tab 1 po 401.1 Elysia LJoyce s daily Lissette Singer.Ella 03/04 Simvastatin 03/26 Hx Tablets 5mg 30tab 1 po 272.2 Elysia LJoyce s daily. Lissette Singer (should M.D. 08/21 be continuat ion of same dose.) Coenzyme Q10 00 Hx Capsules 100mg 1 po 401.1 Unknown /0000 daily. - 03/04 Claritin-D 24 00 Hx Tablets ER 10-240mg 5tabs 1 po qd Unknown Hour /0000 24HR - 11/06 Tramadol HCL 00 Hx Tablets 50mg 1 by Unknown /0000 mouth - every 6 09/07 hours needed Immunizations CPT Code Status Date Vaccine Lot # [id number] Given 03/20/2016 Influenza Vac, Quadriv[place], [place] [id number] Given 01/06/2015 Influenza Vac, Quadriv[place], [place] [id number] Given 03/06/2012 Tdap Tetanus, W Pertussis [id number] Vital Signs Date Vital Result Comment 12/06/2017 BP Systolic 140 mmHg BP Diastolic 80 mmHg Heart Rate 76 /min Body Temperature 98.2 F Respiratory Rate 17 /min Height 63 inches 5'3" 11/25/2017 BP Systolic 162 mmHg BP Diastolic [...] 4.0 x10^3/UL 1.5-7.2 Lymph# 3.5 x10^3/UL 0.7-4.9 Izard# 0.5 x10^3/UL 0.1-0.9 Gran % 49.0 % 42.2-75.2 Lymph % 44.6 % 20.5-51.1 Izard% 6.4 % 1.7-9.3 Comprehensive Metabolic Prof 11/19/2015 [...] 3.6 x10^3/UL 1.5-7.2 Lymph# 2.8 x10^3/UL 0.7-4.9 Izard# 0.3 x10^3/UL 0.1-0.9 Gran % 52.1 % 42.2-75.2 Lymph % 42.8 % 20.5-51.1 Izard% 5.1 % 1.7-9.3 Laboratory test finding 11/06/2014 LDL, Direct 131 mg/dL High 0-130 Comprehensive Metabolic Prof 11/06/2014 Sodium 138 mEq/L [...] 3.6 x10^3/UL 1.5-7.2 Lymph# 3.5 x10^3/UL 0.7-4.9 Izard# 0.5 x10^3/UL 0.1-0.9 Gran % 45.6 % 42.2-75.2 Lymph % 46.6 % 20.5-51.1 Izard% 7.8 % 1.7-9.3 Comprehensive Metabolic Prof 03/08/2013 Albumin 5.5 g/dL [...] 11.8 11.6-13.7 Mean Platelet Volume 7.2 6.5-11.0 Comprehensive Metabolic Prof 03/06/2012 Albumin 5.4 g/dL [...] Calc 0.6-2.2 BUN/Creat Ratio 21.9 Calc 8.0-36.0 Lipid Profile 03/06/2012 Cholesterol 219 mg/dL High 120-200 HDL 45 mg/dL 30-85 Triglycerides 163 mg/dL 30-200 HDL Risk Factor 4.9 CALC High 0.0-4.4 LDL (Calculated) 142 CALC High 0-129 VLDL (Calculated) 33 mg/dL 0-50 Laboratory test finding 01/21/2011 Hemoglobin A1c (a/CMC,CX) 5.4 % 4.1- 5.7 Lipid Profile 01/21/2011 Cholesterol 177 mg/dL 120-200 HDL 42 mg/dL 30-85 Triglycerides 113 mg/dL 30-200 HDL Risk Factor 4.2 CALC High 0.0-4.0 LDL (Calculated) 112 CALC 0-129 VLDL (Calculated) 23 mg/dL 0-50 Comprehensive Metabolic Prof 01/21/2011 Albumin 4.9 g/dL [...] Calc 0.6-2.2 BUN/Creat Ratio 21.1 Calc 8.0-36.0 Surgical Pathology 11/30/2010 Surgical <SEE 10 Pathology NOTE> Comprehensive 10/19/2010 Albumin 4.7 g/dL 3.8-5.5 Metabolic Prof Alk. Phos. 61 U/L 30-110 Alt [...] 25 Oh 33.7 ng/mL 32.0- 100.0 12 Comprehensive Metabolic Prof 02/28/2010 Albumin 4.5 g/dL [...] Calc 0.6-2.2 BUN/Creat Ratio 16.5 Calc 8.0-36.0 Lipid Profile 02/28/2010 Cholesterol 161 mg/dL 120-200 HDL 41 mg/dL 30-85 Triglycerides 135 mg/dL 30-200 HDL Risk Factor 4.0 CALC Low 4.2-7.0 LDL (Calculated) 93 CALC 0-129 VLDL (Calculated) 27 mg/dL 0-50 Laboratory test finding 02/28/2010 TSH 3.80 mIU/L 0.50-6.00 Laboratory test finding 02/28/2010 Hemoglobin A1c 5.5 % 4.1-5.7 (Fma/CMC,CX) Comprehensive Metabolic 08/08/2009 Albumin 4.5 g/dL 3.8-5.5 Prof Alk. Phos. 68 U/L 30-110 Alt (SGPT) [...] RESULT SANDRA'D 10 ---- RUN DATE: 12/02/10 [facility] NMI LIVE PAGE 1 RUN TIME: 1323 Specimen Inquiry RUN USER: INTERFACE -- Name: BEBE PHILLIPS#: [id number] Status: REG REF Re11/30/10 Age/Sex: 50/F Unit#: [id number] Location: [place] : 59 -- Specimen: [id number] SOUT Spec Date: 11/30/[address]: Femi garcia MD Spec Type: SURGICAL P Received: 12/01/10 Copies to: Liz Riggs SPECIMEN BIOPSY SIGMOID NODULE HISTORY POST-OP DIAGNOSIS: Colonoscopy to cecum. Diverticulosis. Nodule. CLINICAL INFORMATION: First exam. Screening. GROSS DESCRIPTION The specimen is received in formalin labelled Bebe Osmar Phillips, Biopsy Sigmoid Nodule, and consists of two fragments of yellow tissue measuring in aggregate 0.4 x 0.4 x 0.2 cm. Submitted entirely, one cassette. DIAGNOSIS Sigmoid nodule, biopsy: A. Tubular adenoma. B. No high grade dysplasia or malignancy. Signed Electronically by: YIFAN DIAMOND 12/02/10 1323 -- -- DEPARTMENT OF PATHOLOGY, [address] [place] [address] [facility] Permit #[id number] Chandan Haines M.D. Director Yifan Diamond M.D. Wire Technician Dir monrealor -- 11 RESULT SANDRA'D 12 Recent studies consider the lower limit of 32.0 ng/mL to be a threshold for optimal health. Kulwinder JORGE. J Nutr. 2004;135(2):317-22. 13 RESULT SANDRA'D 14 AA 07/18/09 15 PREADMISSION TESTING SAMPLES FOR BLOOD [...] CPT E/M Dx Office Visit 11/25/2017 3:15p [facility] [place] [address] M54.12 Z12.31 Z12.11 Office Visit 11/22/2017 9:40a [facility] Mumtaz Chris M.D. 82822 I10 E78.2 Office Visit 11/16/2016 10:10a [facility] Mumtaz Chris M.D. 66685 I10 E78.2 E66.3 Office Visit 11/11/2015 3:10p [facility] Mumtaz Chris M.D. 70443 I10 E78.2 Office Visit 11/06/2014 8:10a [facility] Mumtaz Chris M.D. 50249 401.1 272.2 272.1 Office Visit 03/07/2013 6:00p [facility] Office Mumtaz Chris M.D. 32067 272.2 401.1 Office Visit 03/06/2012 9:20a Main Office Mumtaz Chris M.D. 27934 272.2 401.1 V06.1 v06.5 Office Visit 10/19/2010 8:00a [facility] Liz Calderon M.D. 93390 401.1 272.2 477.2 V65.49 268.9 Office Visit 08/19/2010 7:40p Main Office Mumtaz Chris M.D. 80201 466.0 Office Visit 04/15/2010 6:40p [facility] Office Liz Calderon M.D. 35145 477.2 401.1 Office Visit 03/04/2010 6:00p Main Office Liz Calderon M.D. 23894 401.1 272.2 277.7 Office Visit 08/21/2009 11:00a [facility] Elysia Singer M.D. 12369 401.1 272.2 277.7 Office Visit 03/26/2009 12:00p Main Office Elysia Singer M.D. 04379 401.1 272.2 Plan of Care 12/06/2017 - Melba Poon, NPM54.12 Radiculopathy, cervical regionNew Xrays :MRI Cervical Spine W/O OediwudqX14.2 CervicalgiaNew Medication:Cyclobenzaprine HCL 10 mgHydrocodone-Acetaminophen 5-325 mgAllComments:1. Patient has been queried about patient's goals/preferences and functional/lifestyle goals at relevant visits. If relevant, describe: Has been discussed, noted above2. Treatment goals as explainedto the patient: see abovepain relief and further eval 3. Are there barriers to meeting treatment goals? If Yes, please describe: Barriers include possible insurance limits, disease process, and difficulty with lifestyle changes4. Self-Management goals as described to the patient: Yes, see aboveI will send some hydrocodone to try instead of the tramadol flexeril instead of the tizanidine continue your sx measures, local heat/ ice, keep appt with Dr Manuel as scheduledI reviewed your case with Dr Chris
[2017-12-08 06:23] LABS: EGFR Non-African American 84.6 (>60)
[2017-12-08 06:27] LABS: INR 1.25 (0.77-1.02)
[2017-12-08 06:33] LABS: ABS Basophils 0 10^3/ul (0-0.2); ABS Eosinophils 0 10^3/ul (0-0.6); ABS Lymphocytes 1.1 10^3/ul (1.0-4.8); ABS Monocytes 1.1 10^3/ul (0-0.8); ABS Neutrophils 20.9 10^3/ul (1.5-7.7); ABS Nucleated RBC 0 10^3/ul
[2017-12-08 06:35] LABS: ABS Basophils 0 10^3/ul (0-0.2); ABS Neutrophils 16.2 10^3/ul (1.5-7.7); Monocytes % 2 % (0-7)
[2017-12-08 06:43] LABS: Urine Appearance Clear; Urine Blood 1+ (Negative); Urine Color Amber; Urine Ketones 1+ (Negative); Urine Protein 2+(100 mg/dL) (Negative); Urine Red Blood Cell 3+(>10/hpf) (Absent); Urine Urobilinogen Negative (Negative); Urine White Blood Cell Trace(0-5/hpf) (Absent)
--- NOTE | 2017-12-08 06:57 | ED ---
Progress - Progress Note Progress Note: I supervised the care of the physician assistant produce manager and I performed a history and physical on this patient. History: Unable to move arms and weak legs for several days, unable to feed herself. Has not been able to pass stool and has reported some blood in the urine. I saw her several days ago and she complained of pain in the left trapezius area but was neurologically intact at that time. Today she complains of pain in the right lateral neck and trapezius area. Physical exam: Flaccid paralysis of the right upper extremity. Left upper extremity has some movement against gravity at the level of the elbow, wrist and hand. There is intact light touch, pin point and vibratory sensation in all extremities. There is discomfort with movement of the arms right greater than left. Lower extremities are weak but are 4+ strength. There is 2+ patellar DTRs. There are no reflexes in the upper extremities. Patient is alert, oriented and is in surprisingly pleasant spirits given her symptoms. Short, bull neck with hyperflexion at baseline. Normal rectal tone. Plan: Emergent MRI of the cervical spine that may need to be extended to the course of the entire spine. Emergent consultation with neurosurgery was made and he was requested to come to the bedside. Full laboratories, placement of Lassiter catheter, EKG chest x-ray etc. Concern for possible mass effect from either discitis, epidural abscess, etc. given the lack of trauma. At time of sign out to oncoming ER physician the neurosurgeon had yet to present to the ER. MRI is pending. Patient is noted to be very hypertensive. Pain has been treated. Critical care time indicated on physician assistant produce manager chart is by the physicians. Attending ER physician coverage passed onto Dr. Diaz at 7 AM. Course/Dx - Course Course Of Treatment: Pt. presenting with severe lateral neck pain and arm weakness. Pt. examined immediately by Dr. Trejo as well. Hypertensive at 202/ 78, HR 92bpm, resp 18, pulse ox 97%, temp. 99.8F. IV placed and pt. placed on monitor. WBC elevated at 23k. Dr. Trejo concerned for possible epidural abscess. MRI with contrast ordered of cervical spine. Neurosurgery consulted at 0623, Dr. Branham. He would like a stat ct of head and brain while we wait for cervical MRI and labs. Pain medication and fluids ordered. 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
--- NOTE | 2017-12-08 07:23 | RAD ---
INDICATION: Headache. COMPARISON: There are no relevant prior studies available for comparison. TECHNIQUE: Contiguous axial sections of the brain were obtained from the skull base to the vertex without contrast. FINDINGS: The ventricles, cisterns and sulci are within normal limits. No significant focal abnormality or mass effect is seen. There is no evidence for hemorrhage. No significant focal osseous abnormality is seen. The visualized portion of the paranasal sinuses and mastoid air cells appear clear. IMPRESSION: NO EVIDENCE FOR ACUTE INTRACRANIAL ABNORMALITY.
--- NOTE | 2017-12-08 07:51 | RAD ---
INDICATION: Neck pain. COMPARISON: Comparison is made with a prior CT of the cervical spine from December 03, 2017. TECHNIQUE: Contiguous axial sections were obtained from the skull base through the T2 vertebra. Images were reconstructed in the sagittal and coronal planes. FINDINGS: VERTEBRA: There is straightening of the cervical spine. There is prevertebral soft tissue swelling present throughout the cervical spine beginning at the skull base and continuing to the lower cervical spine which is new from the prior study. There is also some swelling adjacent to the paravertebral muscles adjacent to the lateral aspect of the cervical spine. No fracture is seen. C2-C3: No significant disc bulge or herniation is noted. No spinal canal or neural foraminal narrowing is seen. C3-C4: There is mild posterior uncinate process spurring. No significant spinal canal or neural foraminal narrowing is seen. C4-C5: There is posterior uncinate process spurring and hypertrophic change within the right facet joint. No significant spinal canal narrowing is present. There is moderate neural foraminal narrowing on the right side. C5-C6: There is posterior uncinate process spurring and hypertrophic changes within the facet joints. There appears to be mild spinal canal narrowing. There is moderate neural foraminal narrowing on the right side and mild neural foraminal narrowing on the left side. C6-C7: No significant disc bulge or herniation is noted. No spinal canal or neural foraminal narrowing is seen. LUNG APICES: The lung apices appear clear. The results of this exam were called to the referring clinician. IMPRESSION: 1. THERE IS NEW PREVERTEBRAL SOFT TISSUE SWELLING SUSPICIOUS FOR RETROPHARYNGEAL CELLULITIS. RECOMMEND CLINICAL CORRELATION. IN ADDITION AT THE PATIENT HAS NEUROLOGIC SIGNS AND MRI OF THE CERVICAL SPINE WITHOUT WITH CONTRAST MAY BE HELPFUL IN FURTHER EVALUATION. 2. MILD TO MODERATE CERVICAL SPONDYLOSIS DESCRIBED.
--- NOTE | 2017-12-08 08:19 | RAD ---
Indication: Chest pain. Single frontal view of the chest performed at 0620 hours was reviewed. No prior study is available for comparison. No mediastinal shift is noted. Heart is of normal size and configuration. Lung arce appear clear. IMPRESSION: NO ACTIVE CARDIOPULMONARY DISEASE IS NOTED. R1
--- NOTE | 2017-12-08 09:58 | RAD ---
HISTORY: pain headache, arm weakness COMPARISONS: MRI of the lumbar spine dated September 13, 2013 TECHNIQUE: The following sequences were obtained of the thoracic and lumbar spine: Sagittal and axial T1- and T2-weighted images, coronal T2-weighted images, and sagittal STIR images. Additionally, axial and sagittal T1 weighted images were obtained after contrast enhancement with a gadolinium-based intravenous contrast agent.. FINDINGS: Localization is based on counting from C2 SPINAL CORD, CONUS, AND CAUDA EQUINA: There is diffuse epidural enhancement anteriorly and posteriorly extending from the cervical spine through approximately T3-T4 without appreciable loculated fluid collection. ALIGNMENT: There is grade 1 anterolisthesis of L4 on L5. VERTEBRAL BODIES: The bones are normal in signal intensity. The vertebral bodies are preserved in height. There is multilevel anterolateral marginal osteophyte formation. JOINTS: There is facet osteoarthritis most pronounced along the lower lumbar spine. There is costovertebral osteoarthritis. MUSCULATURE: There is mild fat infiltration. INTERVERTEBRAL DISCS: There is diffuse loss of intervertebral disc height and T2 signal throughout the spine. AXIAL IMAGES: At T5-T6, there is broad-based disc bulge. At T6-T7, there is a broad-based disc bulge. At T9-T10, there is a broad-based disc bulge. At T10-T11, there is a broad-based disc bulge. At T11-T12, there is a right paracentral disc protrusion measuring 0.5 cm in depth. At L4-L5, there is a broad-based disc bulge/rolled disc. There is moderate narrowing of the central canal at L4-L5. There is right greater than left neural foraminal narrowing at L4-L5. There is effacement of the CSF around the upper thoracic cord extending to T3-T4 secondary to the epidural enhancing soft tissue described above. Elsewhere, there is no significant neural foraminal narrowing of central canal stenosis. SOFT TISSUES: There is prevertebral/ retropharyngeal edema and enhancement extending from the neck into the superior segment of the anterior mediastinum without loculated fluid collection. OTHER: The facet osteoarthritis with the left-sided projecting osteophyte into the central canal described at L4-L5 on the previous examination has improved compared to September 13, 2013. IMPRESSION: 1. THERE IS EPIDURAL ENHANCEMENT ANTERIORLY AND POSTERIOR EXTENDING FROM THE CERVICAL SPINE THROUGH T3-T4 EFFACING THE CSF AROUND THE UPPER THORACIC CORD. THIS IS CONSISTENT WITH EPIDURAL PHLEGMON GIVEN THE CLINICAL HISTORY. 2. THERE IS NO APPRECIABLE MRI FINDINGS OF OSTEOMYELITIS, DISCITIS, OR SEPTIC ARTHRITIS WITHIN THE VISUALIZED PORTION OF THE THORACIC AND LUMBAR SPINE. THERE IS EDEMA AND ENHANCEMENT OF THE PREVERTEBRAL/RETROPHARYNGEAL SOFT TISSUE WHICH MAY REPRESENT A SOURCE OF INFECTION. 3. DEGENERATIVE DISC DISEASE AND OSTEOARTHRITIS. 4. THERE IS MODERATE NARROWING OF THE CENTRAL CANAL AT L4-L5. 5. THERE IS MULTILEVEL NEUROFORAMINAL NARROWING DESCRIBED ABOVE.
--- NOTE | 2017-12-08 10:01 | RAD ---
HISTORY: h/a, arm weakness COMPARISONS: Head CT dated December 08, 2017 TECHNIQUE: The following sequences were obtained of the head: Sagittal T1-weighted images, axial T2-weighted images, axial FLAIR images, axial susceptibility weighted images, axial T1-weighted images. Additionally, axial diffusion-weighted images were obtained with calculated apparent diffusion coefficients. FINDINGS: HEMORRHAGE/INFARCT: There is no hemorrhage or acute infarct. MASSES/SHIFT: There is no mass or shift. EXTRA-AXIAL SPACES/MENINGES: There are no extra-axial fluid collections. SULCI AND VENTRICLES: The sulci and ventricles are normal in size and position for the patient's stated age. CEREBRUM: There are no focal parenchymal abnormalities. BRAINSTEM: There are no focal parenchymal abnormalities. CEREBELLUM: There are no focal parenchymal abnormalities. The cerebellar tonsils are normal in size and position. SELLA: The sella is normal. PINEAL: The pineal region is clear. CP ANGLE/TEMPORAL BONES: The labyrinthine structures are grossly normal. VESSELS: Normal flow-voids are noted within the visualized vertebral vasculature. DIFFUSION ABNORMALITIES: There are no diffusion abnormalities. PARANASAL SINUSES/MASTOIDS: The paranasal sinuses are clear. ORBITS: There is bilateral proptosis. BONES AND SOFT TISSUE: No bone or soft tissue abnormalities are noted. OTHER: There is enhancing soft tissue anterior and posterior to the cervical cord further described on the MRI of the cervical spine. IMPRESSION: 1. ENHANCING SOFT TISSUE ANTERIOR AND POSTERIOR TO THE CERVICAL CORD FURTHER DESCRIBED IN THE MRI OF THE CERVICAL SPINE PERFORMED ON SAME DATE. 2. BILATERAL PROPTOSIS. 3. OTHERWISE UNREMARKABLE MRI OF THE BRAIN.
--- NOTE | 2017-12-08 10:14 | RAD ---
HISTORY: arm weakness COMPARISONS: CT dated December 08, 2017 TECHNIQUE: The following sequences were obtained of the cervical spine: Sagittal T1- and T2-weighted images, sagittal STIR images, axial T2 and gradient echo images. FINDINGS: The study is limited by patient motion artifact. BRAIN AND SPINAL CORD: There is mild elevated T2/STIR signal within the cervical cord diffusely, though evaluation is limited by motion artifact. There is diffuse epidural enhancement anterior and posterior to the cervical cord beginning at C1 and extending through the upper thoracic spine. There is no loculated fluid collection to suggest abscess. This effaces the CSF throughout the cervical cord. ALIGNMENT: The alignment is normal. VERTEBRAL BODIES: There is multilevel anterolateral marginal osteophyte formation. JOINTS: There is uncovertebral and facet osteoarthritis. MUSCULATURE: There is diffuse edema of the paraspinal musculature. INTERVERTEBRAL DISCS: There is diffuse loss of intervertebral disc height and T2 signal throughout the spine. AXIAL IMAGES: C2-C3: There is bilateral uncovertebral and facet hypertrophy. There is moderate bilateral neuroforaminal narrowing. As noted above, there is effacement of the CSF anterior and posterior cervical cord by the enhancing soft tissue. C3-C4: There is bilateral uncovertebral facet hypertrophy. As noted above, there is effacement of the CSF anterior and posterior cervical cord by the enhancing soft tissue. C4-C5: There is bilateral uncovertebral and facet hypertrophy. As noted above, there is effacement of the CSF anterior and posterior cervical cord by the enhancing soft tissue. C5-C6: There is bilateral uncovertebral and facet hypertrophy. There is a probable superimposed left paracentral disc protrusion measuring 0.5 cm in depth. There is severe bilateral neural foraminal narrowing. As noted above, there is effacement of the CSF anterior and posterior cervical cord by the enhancing soft tissue. C6-C7: There is bilateral uncovertebral and facet hypertrophy. There is moderate bilateral neuroforaminal narrowing. As noted above, there is effacement of the CSF anterior and posterior cervical cord by the enhancing soft tissue. C7-T1: As noted above, there is effacement of the CSF anterior and posterior cervical cord by the enhancing soft tissue. SOFT TISSUES: There is diffuse edema and enhancement of the prevertebral and posterior frontal soft tissues. There is diffuse enhancement along the musculature of the neck and the fascia of the deep spaces of the neck. There is no loculated fluid collection to suggest abscess. OTHER: None. IMPRESSION: 1. THERE IS DIFFUSE EPIDURAL ENHANCEMENT ANTERIOR AND POSTERIOR DISTAL TO THE CERVICAL CORD EXTENDING TO THE UPPER THORACIC SPINE, SUGGESTIVE OF EPIDURAL PHLEGMON GIVEN THE CLINICAL HISTORY. 2. THERE IS NO APPRECIABLE MRI FINDINGS OF OSTEOMYELITIS, DISCITIS, OR SEPTIC ARTHRITIS. THERE IS EXTENSIVE PREVERTEBRAL SOFT TISSUE AND ENHANCEMENT WITH EXTENSIVE ENHANCEMENT OF THE SOFT TISSUES OF THE NECK INCLUDING THE FASCIA OF THE DEEP SPACES OF THE NECK, SUGGESTIVE OF EXTENSIVE CELLULITIS WITHOUT LOCULATED FLUID COLLECTION TO SUGGEST ABSCESS. THIS SUGGESTS THAT THE SOFT TISSUES OF THE NECK OTHER SOURCE OF INFECTION WITH EXTENSION INTO THE EPIDURAL SPACE. 3. THE ENHANCING EPIDURAL SOFT TISSUE DIFFUSELY EFFACES THE CSF AROUND THE CERVICAL CORD AND THE UPPER THORACIC CORD. 4. THERE IS DEGENERATIVE DISC DISEASE AND OSTEOARTHRITIS WITH A LEFT PARACENTRAL DISC PROTRUSION AT C5-C6
[2017-12-08 10:19] VITALS: BP 179/105
--- NOTE | 2017-12-08 20:52 | CONS ---
CONSULTATION REPORT: DATE OF CONSULT: 12/08/17 - EMERGENCY DEPT CONSULTING PROVIDER: Dr. Davila. REASON FOR CONSULT: Progressive weakness. CHIEF COMPLAINT: Neck pain with progressive weakness of the arms and legs. HISTORY OF PRESENT ILLNESS: Ms. Yadira Phillips is a very healthy 57-year-old overweight female, who presented with progressive weakness associated with neck pain. The patient started feeling ill on 11/21/17. There were no known triggers. She was developing low-grade fever. 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 That progressed to loss of function of both arms. The neck pain is described as a sharp, stabbing pain that is 8/10 in severity and it travels from the right to left. She presented to the ED last Tuesday and she was given pain medication with what she reports injection in the cervical spine. I do not have records for this as our [employer] is down in the hospital. She cannot lay down flat due to severe neck pain. She presented to the ED at 7 a.m. as she woke up and she has trouble lifting the arms. She stated that her legs are not as affected, but do feel weak. She has no language problems. She has no headaches, visual disturbance, slurred speech, or difficulty swallowing. She denied choking on her food. The patient had extensive imaging of the brain, cervical, thoracic, and lumbar spine. The patient brain did not show any acute intracranial abnormality or any pontine infarction. The cervical spine showed an epidural enhancement anteriorly and posteriorly extending from the cervical spine through T3-T4 effacing the CSF around the upper thoracic cord. This is consistent with epidural phlegmon given the clinical history. There is no appreciable MRI finding of osteomyelitis, diskitis, or septic arthritis within the visualized portion of the thoracic and lumbar spine. There is edema and enhancement of the prevertebral/ retropharyngeal soft tissue, which may represent a source of infection. Degenerative disk disease and osteoarthritis was seen throughout the spine. There is moderate narrowing of the central canal at L4-5. There is multilevel neural foraminal narrowing. Laboratory data was obtained, but not currently available. PAST MEDICAL HISTORY: Synovial cyst in the low back where she gets bimonthly injections near that area for pain. PAST SURGICAL HISTORY: Hysterectomy. FAMILY HISTORY: No family history of stroke or seizures. SOCIAL HISTORY: She denied any tobacco use. She drinks a glass of wine on special occasions. She denied any recent alcohol use given her illness that started 11/21/17. REVIEW OF SYSTEMS: A 14-point review of systems was obtained and otherwise negative, except for what was mentioned in the HPI. PHYSICAL EXAM: Vitals: Blood pressure elevated at 210/110, heart rate 80, respiratory rate is 14. She is in 8/10 neck pain. Spurling's sign positive on both directions. General: Well-nourished, well-developed female. She is sleepy because she just received pain medication and anxiolytic medications for the MRI. Head: Normocephalic without any obvious abnormality. Eyes: Conjunctivae/corneas are clear. Neck: Spurling's is positive bilaterally. There is limited range of motion of the neck, especially going towards the right side. No carotid bruits. Lungs: Clear to auscultation bilaterally. Cardiovascular: Regular rate and rhythm with normal S1, S2. Extremities: No cyanosis and no hammertoes. Skin: No skin lesions or laceration. Psych: Affect is broad and normal mood. Easy to establish rapport. Neurological Examination: Mental Status: Awake and alert, oriented to person, place, time, and general circumstances. Speech and language including expression, naming, repetition, and comprehensions were assessed and found to be normal. Cranial Nerves: Normal confrontation bilaterally. Pupils are mid range and reactive to light. Normal consensual response. Sensation is intact on the forehead, cheeks, and jaw region. No facial droop. She is able to hear throughout the history process. Symmetrical palatal elevation. There is normal strength against shoulder shrug. Tongue is symmetrical and midline with no atrophy or fasciculation. Motor: She is flaccid on the right upper extremity. There is some tone in the left upper extremity and increasing tone in the bilateral lower extremities. Shoulder abduction 0/1, elbow flexion 0/0, extension 0/0. Wrist flexion 1/2, extension 1/2. Finger flexion 1/2, extension 1/1, abduction 1/1. Hip flexion 3/3, abduction 3/3. Knee flexion 4/4, extension 4/4. Ankle dorsiflexion 4/4, plantarflexion 4/4, great toe extension 4/4. Reflexes: R/L, brachioradialis 1/1, biceps 1/1, triceps 1/1, patella 1/1, ankle 0/0, plantar mute/extensor. Sensation: Reduced sensation to pinprick and temperature on the upper and lower extremities. There is a sensory level at C4. There is normal vibration and proprioception at the great toes. Coordination was unable to be performed. Gait was not checked. ASSESSMENT AND PLAN: Mrs. Yadira Phillips is a pleasant 57-year-old female, who presents with quadriparesis and neck pain. She has an epidural phlegmon in the cervical extended to the thoracic spine. Dr. Davila is on the case. Surgical options were provided to the patient. Given the extent of her disability and the chance of weakness even with surgery, we agreed to transfer the patient to a tertiary center where she can be evaluated by multiple neurosurgeons, ENT, and neurologist for thorough evaluation as well as obtain other spine testing to look at the vasculature. The patient, her , and Dr. Davila agreed. Dr. Gore accepted the patient at [facility] and Dr. Khalil will evaluate the patient in the ED at [facility]. 1. Spinal cord compression due to an enhancing epidural phlegmon with suspected inflammation from the prevertebral/retropharyngeal cellulitis. 2. Hypertensive urgency - I gave the patient labetalol 10 mg IV push x1 to reduce her blood pressure at least in the systolics in the 180. Due to the concern that the patient may have an anterior spinal cord syndrome due to an anterior spinal artery infarction, we did not want to significantly lower the blood pressure to allow perfusion. 3. Proptosis - needs to evaluate for thyroid disease. The patient will be transported via EMS. No need for any IV medications at this time. Defer further therapy and treatment to the team at [facility]. We have obtained imaging on a disc and we will push over the images to [facility]. [id number]/[facility] #: [id number] [facility]Oneil
--- NOTE | 2017-12-09 01:23 | CONS ---
CONSULTATION NOTE: DATE OF CONSULT: 12/08/17 HISTORY OF PRESENT ILLNESS: The patient is a very pleasant 57-year-old female who presented to the emergency room with severe quadriparesis. I was requested to see the patient by ED physician regarding the patient's acute presentation and increased white blood count. The patient reports that she has been having history of neck pain starting approximately in the beginning of November while she was visiting the [facility]. She reports that the pain has progressed to get worse and she was evaluated in the ED and in her primary physician's office. She reports that she had to visit the emergency room last Tuesday on 12/03/17 and at that time, she had a CT scan of the cervical spine, which was unremarkable and had a trigger point injection and was sent home. The patient reports that she developed weakness of all extremities and on 11/02/17, she was unable to use her hand and she had to be fed by her . She was able to walk with difficulty, but over the course of the next 3 days, she has had progressive weakness of her lower extremities and persistent weakness of the upper extremities. She reports that she has difficulty using her hands and she cannot lift them off the bed. She cannot walk unless she is assisted. She denies any numbness or tingling of the lower extremities. She denies any urinary or GI incontinence. The patient is working at [employer] and is . She is accompanied by her . PAST MEDICAL HISTORY: Hypertension. PAST SURGICAL HISTORY: Hysterectomy. MEDICATIONS: The patient is on: 1. Losartan. 2. Simvastatin. ALLERGIES: The patient is allergic to CODEINE and CITRIC ACID. FAMILY HISTORY: Noncontributory. SOCIAL HISTORY: Tobacco, negative. Alcohol, occasionally. Recreational drug use, negative. PHYSICAL EXAM: The patient was examined in the emergency room at her presentation. The patient was awake, alert, oriented x3. Her pupils were equal and reactive. Cranial nerves II through XII are grossly intact. Motor 1 to 2/5 in the right upper extremity with 0/5 in the finger flexion and extension. On the left upper extremity, motor strength was 2/5 with finger flexion and extension 1 to 2/5. Sensory grossly intact to light touch. Position intact. Deep tendon reflexes absent in the upper and lower extremities. Clonus plus/ minus in both lower extremities. Babinski negative. Anderson negative. DIAGNOSTIC STUDIES: The patient had a CT scan of her brain after examination, which showed no evidence of acute intracranial abnormality. The patient had a CT scan of the cervical spine at the same time that reveals degenerative disc disease with suspicion for retropharyngeal cellulitis. The patient had also an MRI of the cervical spine that revealed diffuse edema of the spinal cord with degenerative disc disease with possible disc herniation at C5-6 level versus discitis with possible stenosis at that level. There is also diffuse enhancement of the anterior and posterior epidural space, possibly representing phlegmon. Films were reviewed with Dr. Yanez, who did not feel that the changes at C5-6 were suggestive of discitis. The patient also had an MRI of the thoracic spine and the lumbar spine that revealed no evidence of epidural abscess, while the enhancement of epidural space anteriorly and posteriorly has extended around the upper thoracic cord. Again, edema and enhancement of prevertebral/retropharyngeal soft tissue was present. IMPRESSION: The patient is a very pleasant 57-year-old female with progressive quadriparesis with MRI findings consistent with epidural phlegmon and degenerative disc disease. PLAN: The patient presented with a combination of degenerative disc disease, cervical stenosis, and possible epidural phlegmon. Discussed in details of the findings at her clinical presentation with her, her , and the patient's brother, who is a psychiatrist in [place] over the phone. I explained the findings and the lack of distinguished epidural abscess, but because of the increased white count and MRI findings, epidural phlegmon may be more possible diagnosis. We discussed again the MRI findings revealing significant stenosis at C5-6 and the patient and her were offered the option of surgical intervention in order to explore and decompress the C5-6 disc space with the understanding that her chances of clinical improvement may be very limited. We also discussed nonsurgical and surgical options as well as expectation in addition to possible complications of the procedure with complications including , but not limited to bleeding, infection, risk of injury to adjacent structures , coma, paralysis, , need for additional procedure, anesthesia risks, worsening of her neurological condition. Given the delayed presentation from the onset of the weakness, we discussed the possibility of established nonreversible spinal cord injury, although it is difficult to predict the outcome of the possible surgical intervention. Also discussed the possibility of spinal cord infarction. The patient and her family would not like to proceed with surgical intervention at this point understanding the possible outcome of their decision. After discussion with Dr. Fernandes from Neurology, the patient's family and the patient were offered the option of transfer after Dr. Fernandes contacted the Neurology Department at [facility]. The patient was transferred to [facility] after arrangement made by Dr. Fernandes. Thank you for allowing us to participate in the care of this patient. Please do not hesitate to contact our office in case you have any further questions or concerns regarding the care of this patient. [id number]/[facility] #: [id number] ZAIN
--- NOTE | 2017-12-11 06:42 | PN ---
Progress Note - Progress Note Date of Service: 12/08/17 Note: Patient was found to have elevated WBC with streptococcus intermedius This could possibly be contaminate vs. + blood cultures Patient is transferred to a higher level of care Nothing further at this time Penny Verdugo PA-C
== END | disposition short-term general hospital (02) ==
LOC: ED 05:26
DX: G83.82 Anterior cord syndrome (principal); G83 Other paralytic syndromes; M50.222 Other cervical disc displacement at C5-C6 level; M50.322 Other cervical disc degeneration at C5-C6 level; M47.9 Spondylosis, unspecified; I10 Essential (primary) hypertension; R31.9 Hematuria, unspecified; K59.00 Constipation, unspecified; Z79.899 Other long term (current) drug therapy; Z88.5 Allergy status to narcotic agent
CPT/HCPCS: 36415; 70450; 70553; 71045; 72125; 72156; 72157; 72158; 80053; 81003; 81015; 82550; 83605; 84484; 85025; 85610; 85730; 86141; 86618; 87040; 87077; 87086; 87186; 87205; 93005; 96374; 96375; 96376; 99285; A9579; J1170; J2060; J2405; J2543; J3370